=== PATIENT | male | born 1975 | race Caucasian/White ===

== ENCOUNTER 2019-10-15 23:33 | Emergency (ER) | payer OTHER ==
[~2019-10-15] VITALS: Ht 177.8 cm; Wt 80.0 kg
[2019-10-15 23:40] VITALS: BP 142/75
[2019-10-16] MEDS ORDERED: PROPARACAINE OPHTH 0.5%, 15ML EACHEYE ONE
[2019-10-16] MEDS ORDERED: PLEASE ENTER ALLERGIES MC SCH (00:30)
[2019-10-16] MEDS ORDERED: FLUORESCEIN OPHTHALMIC 1 MG STRIP ONE (00:51)
--- NOTE | 2019-10-16 02:02 | NUR ---
AWAITING OPTHO CONSULT
== END 2019-10-16 03:02 | disposition home or self-care (01) ==
LOC: ED 10-16 00:42
DX: H10.213 Acute toxic conjunctivitis, bilateral (principal); Z77.098 Contact with and (suspected) exposure to other hazardous, chiefly nonmedicinal, chemicals
CPT/HCPCS: 99283